=== PATIENT | male | born 1985 | race Caucasian/White ===

== ENCOUNTER 2019-03-06 16:00 | Outpatient (CLI) | payer OTHER ==
--- NOTE | 2019-03-06 16:29 | RAD ---
EXAM: Lumbar spine 3 views: HISTORY: Back strain after falling off lawnmower 2 weeks ago COMPARISON: None FINDINGS: No evidence for acute fracture or dislocation or significant acute process. No evidence for significant malalignment. Disc spaces are adequately preserved. No evidence for a focal bone lesion. IMPRESSION: Unremarkable spine.
== END 2019-03-06 16:01 | disposition home or self-care (01) ==
LOC: NAV RAD 16:00
PROVIDERS: ATTEND Family Medicine
DX: S39.012D Strain of muscle, fascia and tendon of lower back, subsequent encounter (principal)
CPT/HCPCS: 72100

== ENCOUNTER 2019-03-13 20:38 | Emergency (ER) | payer OTHER ==
[2019-03-13] MEDS ORDERED: Sodium Chloride 0.9% 1,000 ML ONE (21:03)
[2019-03-13] MEDS ORDERED: Lorazepam 2 MG/ML VIAL ONE (21:03)
[2019-03-13 21:07] LABS: #Basophils 0.1 thou/uL (0.0-0.2); #Lymphocytes 1.2 thou/uL (1.20-3.40); #Monocytes 0.9 thou/uL (0.11-0.59); #Neutrophils 6.6 thou/uL (1.40-6.50); %Basophils 0.8 % (0.0-1.0); %Eosinophils 0.2 % (0.0-10.0); %Lymphocytes 13.3 % (21.0-51.0); %Monocytes 10.1 % (0.0-10.0); %Neutrophils 75.5 % (42.0-75.0); Hemoglobin 14.5 g/dL (14.0-18.0); Mean Corpuscular HGB CONC 32.7 g/dL (32.0-36.0); Mean Corpuscular Hemoglobin 30.3 pg (27.0-31.0); Mean Corpuscular Volume 92.8 fL (78.0-98.0); Mean Platelet Volume 4.8 fL (7.4-10.4); Platelet Count 130 thou/uL (130-400); Red Blood Cell (RBC) Count 4.79 mill/uL (4.70-6.10); White Blood Cell (WBC) Count 8.7 thou/uL (4.8-10.8)
[2019-03-13 21:20] LABS: Amphetamine Not Detected (NotDetected); Barbiturates Screen Not Detected (NotDetected); Benzodiazepine Screen Not Detected (NotDetected); Cocaine Metabolite Screen Not Detected (NotDetected); Medtox Control Line Valid? VALID (VALID); Methadone Not Detected (NotDetected); Methamphetamine Not Detected (NotDetected); Opiate Screen Not Detected (NotDetected); Oxycodone Screen Not Detected (NotDetected); Phencyclidine (PCP) Not Detected (NotDetected); THC/Cannabinoid Screen Not Detected (NotDetected); Tricyclic Screen Not Detected (NotDetected)
[2019-03-13 21:22] LABS: ALT (SGPT) 169 U/L (8-55); AST (SGOT) 110 U/L (5-34); Albumin 4.8 g/dL (3.5-5.0); Alcohol Less than 10 mg/dL (Less than 10); Alkaline Phosphatase 81 U/L (40-150); Anion Gap 22 mmol/L (10-20); BUN (Urea Nitrogen) 8 mg/dL (8.9-20.6); Bilirubin, Total 0.6 mg/dL (0.2-1.2); CK (CPK) 95 U/L (30-200); Calc. Creatinine Clearance 0 mL/min (70-130); Calcium 10.3 mg/dL (7.8-10.44); Carbon Dioxide 25 mmol/L (22-29); Chloride 92 mmol/L (98-107); Estimated GFR-MDRD Greater than 90; Globulin 3.7 g/dL (2.4-3.5); Glucose 113 mg/dL (70-105); Lipase 24 U/L (8-78); Potassium 3.2 mmol/L (3.5-5.1); Protein, Total 8.5 g/dL (6.0-8.3); Sodium 136 mmol/L (136-145)
[2019-03-13] MEDS ORDERED: Acetaminophen 500 MG TAB ONE (22:06)
[2019-03-13] MEDS ORDERED: Lorazepam 0.5 MG TAB ONE (22:46)
== END 2019-03-13 22:47 | disposition home or self-care (01) ==
LOC: NAV ERS 20:38
DX: F10.239 Alcohol dependence with withdrawal, unspecified (principal); F17.210 Nicotine dependence, cigarettes, uncomplicated; Z79.899 Other long term (current) drug therapy
CPT/HCPCS: 80053; 80306; 80307; 82550; 83690; 84484; 85025; 93005; 96361; 96374; J2060; J7050

== ENCOUNTER 2019-06-06 06:04 | Emergency (ER) | payer OTHER ==
[2019-06-06] MEDS ORDERED: Lidocaine 1% w/Epinephrine 1:100K 30 ML VIAL ONE (06:16)
[2019-06-06] MEDS ORDERED: Sterile Water 10 ML ONE (07:36)
[2019-06-06] MEDS ORDERED: Sterile Water 0 ML ONE (07:36)
== END 2019-06-06 08:25 | disposition home or self-care (01) ==
LOC: NAV ERS 06:04
DX: J30.9 Allergic rhinitis, unspecified (principal); R04.0 Epistaxis; F17.210 Nicotine dependence, cigarettes, uncomplicated; Z79.899 Other long term (current) drug therapy
CPT/HCPCS: 30903; J2001

== ENCOUNTER 2020-07-20 15:44 | Emergency (ER) | payer SELFPAY ==
--- NOTE | 2020-07-20 16:35 | CT ---
EXAM: Brain CTWithout contrast: HISTORY: Injury from trauma COMPARISON: 05/19/2016 FINDINGS: No focal mass or midline shift. No intra or extra-axial hemorrhage. Minimal ethmoid sinus mucosal congestion IMPRESSION: No mass or bleed or other significant acute intracranial process.
--- NOTE | 2020-07-20 16:36 | RAD ---
2 views chest: 07/20/2020 COMPARISON: None HISTORY: Trauma FINDINGS: There is an obliquely oriented fracture involving the distal right clavicle, the distal fra cture fragment demonstrating 1.5 cm of inferior displacement. There is widening of the acromioclavicular and coracoclavicular interspace suspicious for an associated grade 3 AC joint injur y. No pneumothorax, focal consolidation, or alveolar edema. Heart and mediastinal contours are unremarka ble. IMPRESSION: Displaced obliquely oriented distal right clavicle fracture with findings suspicious for an associated grade 3 AC injury. Orthopedic consultation advised.
--- NOTE | 2020-07-20 16:39 | CT ---
EXAM: CT scan cervical spineWithout contrast: HISTORY: Injury from trauma COMPARISON: None FINDINGS: No evidence for acute fracture or facet dislocation. No significant malalignment. No prevertebral soft tissue swelling. IMPRESSION: No evidence for acute fracture or facet dislocation or other significant acute process.
[2020-07-20] MEDS ORDERED: Ketorolac Tromethamine 60 MG/2 ML VIAL ONE (16:47)
--- NOTE | 2020-07-20 16:53 | RAD ---
3 views right shoulder: 07/20/2020 COMPARISON: None HISTORY: Injury, trauma, pain FINDINGS: There is an obliquely oriented comminuted distal right clavicle fracture with approximately 1 cm of inferior displacement of the distal fracture fragment. Widening of the acromioclavicular and coracoclavicular interspace is suspicious for associated grade 3 AC joint injury. No obvious disl ocation is seen although assessment is limited as the provided scapular Y view is suboptimally positioned. IMPRESSION: Displaced comminuted distal right clavicle fracture with widening of the AC and CC inters pace as above. Orthopedic consultation advised.
== END 2020-07-20 17:05 | disposition home or self-care (01) ==
LOC: NAV ERS 15:44
DX: S42.031A Displaced fracture of lateral end of right clavicle, initial encounter for closed fracture (principal); S43.401A Unspecified sprain of right shoulder joint, initial encounter; F41.9 Anxiety disorder, unspecified; F17.210 Nicotine dependence, cigarettes, uncomplicated; F10.129 Alcohol abuse with intoxication, unspecified; G40.409 Other generalized epilepsy and epileptic syndromes, not intractable, without status epilepticus; Z79.899 Other long term (current) drug therapy; V86.55XA Driver of 3- or 4- wheeled all-terrain vehicle (ATV) injured in nontraffic accident, initial encounter
CPT/HCPCS: 70450; 71046; 72125; 96372; J1885

== ENCOUNTER 2021-11-03 18:59 | Emergency (ER) | payer OTHER, SELFPAY ==
[2021-11-03] MEDS ORDERED: Sodium Chloride 0.9% 1,000 ML ONE (19:30)
[2021-11-03] MEDS ORDERED: Lorazepam 2 MG/ML VIAL ONE (19:30)
[2021-11-03] MEDS ORDERED: Pantoprazole 40 MG VIAL ONE (19:32)
[2021-11-03] MEDS ORDERED: Octreotide Acetate 100 MCG/ML VIAL ONE (19:32)
[2021-11-03] MEDS ORDERED: Sodium Chloride 0.9% 100 ML ONE ×2 (19:32→19:41)
[2021-11-03] MEDS ORDERED: Multivit, Adult Inj 10 ML VIAL ONE (19:36)
[2021-11-03] MEDS ORDERED: Folic Acid 1 MG, Multivitamins, Adult 10 ML in Dextrose 5 %-0.45 % NaCl 1,000 ML IV SCH (19:45)
[2021-11-03] MEDS ORDERED: Thiamine HCl 200 MG/2 ML VIAL SLOW IVP SCH (19:45)
[2021-11-03] MEDS ORDERED: Pantoprazole 80 MG, Admixture Fee 1 EACH in Sodium Chloride 0.9% 100 ML IVPB SCH (19:45)
[2021-11-03 19:47] LABS: PTT 26.8 sec (22.9-36.1)
[2021-11-03 19:48] LABS: #Basophils 0.1 thou/uL (0.0-0.2); #Lymphocytes 1.5 thou/uL (1.20-3.40); #Monocytes 1.1 thou/uL (0.11-0.59); #Neutrophils 10.9 thou/uL (1.40-6.50); %Basophils 0.5 % (0.0-1.0); %Lymphocytes 11.1 % (21.0-51.0); %Monocytes 8.2 % (0.0-10.0); %Neutrophils 80.2 % (42.0-75.0); Hemoglobin 5.5 g/dL (14.0-18.0); Mean Corpuscular HGB CONC 35.1 g/dL (32.0-36.0); Mean Platelet Volume 4.5 fL (7.4-10.4); Platelet Count 338 thou/uL (130-400); RBC Distribution Width 21.7 % (11.5-14.5); Red Blood Cell (RBC) Count 1.52 mill/uL (4.70-6.10); White Blood Cell (WBC) Count 13.6 thou/uL (4.8-10.8)
[2021-11-03 19:54] LABS: ALT (SGPT) 17 U/L (8-55); AST (SGOT) 31 U/L (5-34); Acetaminophen Less than 6.0 mcg/mL (10.0-30.0); Albumin 3.2 g/dL (3.5-5.0); Alcohol 47 mg/dL (Less than 10); Alkaline Phosphatase 49 U/L (40-110); Anion Gap 24 mmol/L (10-20); BUN (Urea Nitrogen) 13 mg/dL (8.9-20.6); Bilirubin, Total 0.2 mg/dL (0.2-1.2); Calc. Creatinine Clearance 0 mL/min (70-130); Calcium 8.3 mg/dL (7.8-10.44); Carbon Dioxide 13 mmol/L (22-29); Chloride 84 mmol/L (98-107); Globulin 2.5 g/dL (2.4-3.5); Glucose 160 mg/dL (70-105); Lipase 40 U/L (8-78); Magnesium 1.9 mg/dL (1.6-2.6); Protein, Total 5.7 g/dL (6.0-8.3); Salicylate Less than 8.0 mg/dL (15.0-30.0)
[2021-11-03] MEDS ORDERED: Thiamine HCl 200 MG/2 ML VIAL ONE (20:09)
[2021-11-03 20:13] LABS: Sodium 117 mmol/L (136-145)
[2021-11-03 21:00] LABS: SARS-CoV-2 NAA Rapid Test Not Detected (NotDetected)
[2021-11-03] MEDS ORDERED: Sodium Chloride 0.9% 250 ML 250 ML ONE (21:33)
[2021-11-03 22:17] LABS: Bilirubin Negative (Negative); Blood, Urine Negative (Negative); Clarity Clear (Clear); Glucose, Urine (Dipstick) Negative (Negative); Ketone, Urine 15 mg/dL (Negative); Leukocyte Negative (Negative); Nitrite Negative (Negative); Protein, Urine (Dipstick) Negative (Neg-Trace); Specific Gravity, Urine 1.015 (1.005-1.030); Urobilinogen 0.2 mg/dL (Less than 2); pH, Urine 5.5 (5.0-9.0)
[2021-11-03 22:27] LABS: Amphetamine Not Detected (NotDetected); Barbiturates Screen Not Detected (NotDetected); Benzodiazepine Screen Detected (NotDetected); Cocaine Metabolite Screen Not Detected (NotDetected); Medtox Control Line Valid? VALID (VALID); Methadone Not Detected (NotDetected); Methamphetamine Not Detected (NotDetected); Opiate Screen Not Detected (NotDetected); Oxycodone Screen Not Detected (NotDetected); Phencyclidine (PCP) Not Detected (NotDetected); THC/Cannabinoid Screen Not Detected (NotDetected); Tricyclic Screen Not Detected (NotDetected)
[2021-11-04 11:37] LABS: Iron Binding Capacity, Total 264 mcg/dL (261-462)
[2021-11-04 12:07] LABS: Iron 27 ug/dL (65-175)
== END 2021-11-03 22:10 | disposition short-term general hospital (02) ==
LOC: NAV ERS 18:59
DX: K92.2 Gastrointestinal hemorrhage, unspecified (principal); D62 Acute posthemorrhagic anemia; E87.1 Hypo-osmolality and hyponatremia; F10.20 Alcohol dependence, uncomplicated; R00.0 Tachycardia, unspecified; I51.7 Cardiomegaly; F17.210 Nicotine dependence, cigarettes, uncomplicated; Z20.822 Contact with and (suspected) exposure to COVID-19; Z79.899 Other long term (current) drug therapy
CPT/HCPCS: 36430; 80053; 80306; 80307; 81003; 82274; 82728; 83540; 83550; 83690; 83735; 85025; 85610; 85730; 86850; 86900; 86901; 93005; 94760; 96365; 96366; 96375; C9113; J2060; J2354; J3411; J7050; P9016; U0002

== ENCOUNTER 2024-05-12 06:05 | Emergency (ER) | payer OTHER ==
[2024-05-12 06:29] LABS: #Basophils 0.1 thou/uL (0.0-0.2); #Lymphocytes 0.8 thou/uL (1.20-3.40); #Neutrophils 14.6 thou/uL (1.40-6.50); %Basophils 0.8 % (0.0-1.0); %Monocytes 6.3 % (0.0-10.0); Hematocrit 37.8 % (42.0-52.0); Hemoglobin 13.1 g/dL (14.0-18.0); Mean Corpuscular HGB CONC 34.6 g/dL (32.0-36.0); Mean Corpuscular Hemoglobin 30.5 pg (27.0-31.0); Mean Corpuscular Volume 88.1 fl (78.0-98.0); Mean Platelet Volume 5.3 fL (7.4-10.4); Platelet Count 277 10x3/uL (130-400); RBC Distribution Width 10.9 % (11.5-14.5); White Blood Cell (WBC) Count 16.6 10x3/uL (4.8-10.8)
[2024-05-12 06:39] LABS: Base Excess-Venous -4.9 mmol/L (-2.0 to 3.0); Bicarbonate (HCO3v) 16.5 mmol/L (22.0-28.0); CO2 Tension (PvCO2) 22.8 mmHg (42.0-51.0); Calcium, Ionized 0.89 mmol/L (1.15-1.33); Chloride 72 mmol/L (98-107); Hemoglobin - Calc 15.6 g/dL (14.0-18.0); Potassium 3.5 mmol/L (3.5-5.1); Sodium 104 mmol/L (138-145); T. Carbon Dioxide 17.2 mmol/L (22.0-28.0); vO2 Saturation-calc 90.8 % (60.0-85.0)
[2024-05-12] MEDS ORDERED: Boostrix 0.5 ML (Tdap) VIAL (>/=7 yrs of age) ONE (06:44)
[2024-05-12 06:46] LABS: ALT (SGPT) 67 U/L (8-55); AST (SGOT) 99 U/L (5-34); Albumin 4.3 g/dL (3.5-5.0); Alcohol 265.5 mg/dL (Less than 10); Alkaline Phosphatase 89 U/L (40-110); Anion Gap 28 mmol/L (10-20); BUN (Urea Nitrogen) 13 mg/dL (8.9-20.6); Bilirubin, Total 0.8 mg/dL (0.2-1.2); CK (CPK) 473 U/L (30-200); Calc. Creatinine Clearance 0 mL/min (70-130); Carbon Dioxide 14 mmol/L (22-29); Chloride 70 mmol/L (98-107); Estimated GFR 121; Globulin 3.7 g/dL (2.4-3.5); Glucose 134 mg/dL (70-105); Potassium 3.5 mmol/L (3.5-5.1)
[2024-05-12 06:48] LABS: Sodium 108 mmol/L (136-145)
[2024-05-12 06:49] LABS: Prothrombin Time 13.6 sec (12.0-14.7)
[2024-05-12 06:50] LABS: PTT 29.4 sec (22.9-36.1)
[2024-05-12] MEDS ORDERED: Iopamidol 370 76% 100 ML VIAL ONE (09:00)
== END 2024-05-12 07:17 | disposition short-term general hospital (02) ==
LOC: NAV ERS 06:05
DX: S06.0X9A Concussion with loss of consciousness of unspecified duration, initial encounter (principal); F10.20 Alcohol dependence, uncomplicated; E87.1 Hypo-osmolality and hyponatremia; F17.210 Nicotine dependence, cigarettes, uncomplicated; Z86.69 Personal history of other diseases of the nervous system and sense organs; Z79.899 Other long term (current) drug therapy; Z23 Encounter for immunization; X58.XXXA Exposure to other specified factors, initial encounter
CPT/HCPCS: 70450; 71260; 72125; 74177; 80053; 80307; 82330; 82435; 82550; 82803; 84132; 84295; 85014; 85025; 85610; 85730; 90471; 90715; 93005; Q9967

== ENCOUNTER 2024-05-19 08:02 | Emergency (ER) | payer SELFPAY ==
[2024-05-19] MEDS ORDERED: Bacitracin 1 PK ONE (08:27)
[2024-05-19] MEDS ORDERED: Ibuprofen 200 MG TAB ONE (08:28)
[2024-05-19] MEDS ORDERED: guaiFENesin ER 600 MG TAB ONE (08:28)
== END 2024-05-19 09:31 | disposition home or self-care (01) ==
LOC: NAV ERS 08:02
DX: R07.89 Other chest pain (principal); J20.8 Acute bronchitis due to other specified organisms; S01.81XD Laceration without foreign body of other part of head, subsequent encounter; F17.210 Nicotine dependence, cigarettes, uncomplicated; W18.30XD Fall on same level, unspecified, subsequent encounter
CPT/HCPCS: 71046; 93005